=== PATIENT | male | born 1950 | race Caucasian/White ===

== ENCOUNTER 2017-01-29 09:26 | Observation (INO) | payer BC, MEDICARE ==
--- NOTE | ~2017-01-29 | HP ---
History And Physical [address] [place]. [address] NAME: ROBERT OLEA : 52 STATUS : ADM Namrata PAT#: [id number] AGE: 66 ADM/REG DATE : 01/29/17 MR#: [id number] REPORT SERV DATE: 01/29/17 DICTATED BY: DATE: REPORT STATUS : Draft TRANSCRIBED BY: MODL DATE: 01/29/17 DATE OF ADMISSION: 01/29/2017 CHIEF COMPLAINT: Diarrhea, nausea, and vomiting. HISTORY OF PRESENT ILLNESS: Mr. Olea 66-year-old white male, well known to our service with end-stage renal disease, being maintained on peritoneal dialysis. He presents to the hospital with diarrhea present since Friday. It initially started with nausea and vomiting. The nausea and vomiting had since resolved, however, then he began having diarrhea, multiple loose stools per day. The states every time he gets up and walks, liquid stools flows out. He is so weak, he cannot even get up and walk. Even his bottom is excoriated and he has had some blood. She is not sure if it is not just from the open wound on his bottom from all this diarrhea. He has been chilling. No overt fevers. His labs are stable for his end-stage renal disease. White blood cell count is normal. However, given this profuse diarrhea with hypotension and blood pressure in the 80s, he is being admitted for further evaluation. PAST MEDICAL HISTORY: End-stage renal disease; COPD; hypothyroidism; systolic heart failure; hypertension; atrial fibrillation; hyperlipidemia; type 2 diabetes; CVA; cluster headaches; C-spine stenosis with significant chronic pain, being maintained on chronic opioids; vertebral stenosis; failed renal transplant; and coronary artery disease, status post bypass and NH. SOCIAL HISTORY: He is . His is very supportive and helps with his care. Remote tobacco use. No alcohol use. FAMILY MEDICAL HISTORY: Strongly positive for end-stage renal disease. MEDICATIONS: At home; aspirin, Bumex, PhosLo, Coreg, Zyrtec, clobetasol, clonidine, Plavix, Lomotil, Colace, Lexapro, [place], NovoLog, Lantus, iron, Synthroid, Cytomel, Zestril, ProAmatine, Remeron, Singulair, Nitrostat, oxycodone, Protonix, Phenergan, Ranexa, Crestor, and Aranesp. REVIEW OF SYSTEMS: A 12-point review of systems was obtained and negative with the exception of that in the HPI. PHYSICAL EXAMINATION: VITAL SIGNS: Temp 97.8, blood pressure 89/36, pulse 71, respiratory rate 12, and O2 saturation is 94%. GENERAL: This is a chronically ill-appearing white male. He is awake, alert, oriented x3, in no acute distress. He answers questions appropriately. HEENT: Normocephalic and atraumatic. Conjunctivae are clear. Sclerae are anicteric. Pupils are equal and round. Oral mucosa is dry. NECK: Supple. Carotids are without bruits. Neck veins are flat. No lymphadenopathy. LUNGS: His respirations are even and unlabored. Breath sounds clear to auscultation. History And Physical [address] [address] NAME: ROBERT OLEA : 52 STATUS : ADM Namrata PAT#: [id number] AGE: 66 ADM/REG DATE : 01/29/17 MR#: [id number] REPORT SERV DATE: 01/29/17 DICTATED BY: DATE: REPORT STATUS : Draft TRANSCRIBED BY: MODL DATE: 01/29/17 HEART: Rate is regular. No murmur, rub, or gallop. ABDOMEN: Soft. Peritoneal catheter with no drainage or opening sores around the exit site. Abdomen is soft and nontender. Bowel sounds are active. No CVA tenderness. BACK: Within normal limits. EXTREMITIES: No edema, cyanosis, or clubbing. SKIN: Warm, dry, and intact. No unusual rashes or skin lesions. NEURO: Generalized weakness. No focal deficits. Mood and affect, pleasant and appropriate. PERTINENT LABS AND X-RAYS: Chest x-ray is found to be negative. WBC 7000, H and H 9 and 28, and platelets 168,000. Sodium 134, potassium 3.9, chloride 101, CO2 of 20, BUN of 81, creatinine of 7.5, calcium 6.9, and magnesium 1.9. Albumin 2.8. LFTs are unremarkable. IMPRESSION: 1. Diarrhea. 2. Nausea and vomiting. 3. Hypotension. 4. End-stage renal disease. 5. Type 2 diabetes. 6. Chronic pain. PLAN: Admit. We will start him empirically on vancomycin p.o. until the C. diff comes back. He will be provided with antiemetics, IV fluids, and PD with 1.5% solution tonight. Hold blood pressure medicines as appropriate. Pain medicines will be provided if blood pressure allows. Further orders and recommendations pending clinical course. MAKI/CAROLINA SIMONE Duffy / [id number] CC: Jimmy Altman M.D. Braxton Cole DO
[~2017-01-29 09:26] MED LIST: AFRIN15 NAS; ARANESP IM; ARANESP IV; ASA5GR PO; ASAB PO; ATIVAN2 MG PO; ATRONASAL3 NAS; ATV1 PO; BEN GAY1.25 OZ TOP; BUM1 PO; CAT1 PO; CHANTIX0.5 PO; CLARIT10 PO; CLOBETASOL0.051 EX; COMPOUND CREAM TOP; COREG12 PO; COREG25 PO; COREG6 PO; COUMADIN7.5 MG PO; CRESTOR40 MG PO; CYMBALTA60 PO; CYTO5 PO; D.O.S.100 MG PO; DEMA20 PO; DSS PO; DYMISTA NASAL S23 GM NAS; EZFE 200200 MG PO; FISH OIL1200 MG PO; FISH-EPA1000 MG PO; HALF81 PO; HYDROCODONE PO; HYZAAR1 TAB PO; IMDUR30 PO; IMDUR60 PO; LANTUS SC; LANTUSCART SC; LASIX; LEVEMIR SC; LEVOTHYROXIN100 MCG PO; LEVOTHYROXIN75 MCG PO; LEXAPRO10 PO; LEXAPRO20 PO; LIPITOR80 MG PO; LISINOPRIL40 MG PO; LORTAB10 PO; MSCONT15 PO; MSCONTIN PO; NICODERM C14 MG/24 H TOP; NICODERM C7 MG/24 HR TOP; NITROSTAT0.4 MG SL; NORCO1 TA2 PO; NORCO1 TAB PO; NORV5 PO; NOVOLOG SC; NOVOPEN SC; OXYCON10 PO; OXYCONTIN30 MG PO; PHOSLO PO; PLAVIX PO; PRAVACHOL80 MG PO; PRIN2.5 PO; PRIN5 PO; PROAMAT5 PO; PROTONIX PO; RAN500 PO; REM15 PO; REMERON30 MG PO; SEROQUEL25 PO; SINGULAIR1 PO; SUPER B-100 PO; SYN1 PO; TEKTURNA300 MG PO; TEMOVATE CREAM30 GM TOP; ULTRAM50 PO; VENOFER IV; VITAMIN D1000 UNI1 PO; VITAMIN D31000 UNIT PO; WELLBUTRIN; ZESTRIL10 MG PO; ZOFRAN8 SL; ZOFRANODT8 PO; ZYRTEC ALLGY10 MG PO; [UNRECOGNIZED DRUG - OTHER] PO
[2017-01-29 10:24] LABS: BASOPHILS 0.1 %; BASOPHILS ABSOLUTE 0.01 10/3/uL (0.0-0.16); EOSINOPHILS 0.5 %; EOSINOPHILS ABSOLUTE 0.04 10/3/uL (0.0-0.53); ER CBC TAT 0 Hrs 05 Mins; HEMATOCRIT 28.7 % (40.0-51.0); HEMOGLOBIN 9.3 g/dL (13.6-17.8); IMMATURE GRANULOCYTES 0.3 %; IMMATURE GRANULOCYTES ABSOLUTE 0.02 10/3/uL (0.0-0.11); LYMPHOCYTES 11.7 %; MANUAL DIFF NO %; MEAN CORPUS HGB CONC 32.4 g/dL (32.0-36.0); MEAN CORPUSCULAR HEMOGLOB 31.7 pg (26.0-34.0); MEAN PLATELET VOLUME 9.9 fL (9.2-13.0); MONOCYTES 12.3 %; MONOCYTES ABSOLUTE 0.94 10/3/uL (0.21-1.20); NEUTROPHILS 75.1 %; NEUTROPHILS ABSOLUTE 5.75 10/3/uL (2.02-8.40); PLATELET COUNT 168 10/3/uL (150-400); RBC DISTRIBUTION WIDTH 14.5 % (12.0-16.0); RED CELL COUNT 2.93 10/6/uL (4.7-6.1); WHITE BLOOD CELLS 7.7 10/3/uL (4.5-10.5)
[2017-01-29 10:38] LABS: A/G RATIO 0.8 (0.7-1.9); ALBUMIN 2.5 G/DL (3.5-5.0); ALKALINE PHOSPHATASE 53 U/L (45-117); BUN (BLOOD UREA NITROGEN) 81 MG/DL (6-23); CALCIUM, SERUM 6.9 MG/DL (8.5-10.4); CHLORIDE, SERUM 101 MMOL/L (96-112); CO2 (CARBON DIOXIDE) 20 MMOL/L (24-34); CREATININE 7.51 MG/DL (0.70-1.30); GFR AFRICAN AMERICAN 8 ML/MIN (>=60); GFR NON AFRICAN AMERICAN 7 ML/MIN (>=60); GLOBULIN 3.2 G/DL (2.5-4.1); GLUCOSE, SERUM 72 MG/DL (60-99); POTASSIUM, SERUM 3.9 MMOL/L (3.5-5.3); SGOT(AST) 35 U/L (5-40); SGPT(ALT) 21 U/L (5-65); SODIUM, SERUM 134 MMOL/L (135-148); TOTAL BILIRUBIN 0.3 MG/DL (0-1.2); TOTAL PROTEIN 5.7 G/DL (6.0-8.5)
[2017-01-29] MEDS ORDERED: PR25 PO (12:12)
[2017-01-29] MEDS ORDERED: LOM PO (12:13)
[2017-01-30 06:22] LABS: ALBUMIN 2.3 G/DL (3.5-5.0); BUN (BLOOD UREA NITROGEN) 72 MG/DL (6-23); CALCIUM, SERUM 7.3 MG/DL (8.5-10.4); CHLORIDE, SERUM 108 MMOL/L (96-112); CO2 (CARBON DIOXIDE) 19 MMOL/L (24-34); CREATININE 6.96 MG/DL (0.70-1.30); GFR AFRICAN AMERICAN 9 ML/MIN (>=60); GFR NON AFRICAN AMERICAN 8 ML/MIN (>=60); GLUCOSE, SERUM 109 MG/DL (60-99); PHOSPHORUS, SERUM 4.7 MG/DL (2.5-4.5); SODIUM, SERUM 140 MMOL/L (135-148)
[2017-01-30 07:34] LABS: BASOPHILS 0.2 %; BASOPHILS ABSOLUTE 0.01 10/3/uL (0.0-0.16); EOSINOPHILS 1.8 %; HEMATOCRIT 28.2 % (40.0-51.0); HEMOGLOBIN 9.2 g/dL (13.6-17.8); IMMATURE GRANULOCYTES 0.2 %; IMMATURE GRANULOCYTES ABSOLUTE 0.01 10/3/uL (0.0-0.11); LYMPHOCYTES 14.2 %; LYMPHOCYTES ABSOLUTE 0.81 10/3/uL (0.67-4.30); MEAN CORPUS HGB CONC 32.6 g/dL (32.0-36.0); MEAN CORPUSCULAR HEMOGLOB 31.6 pg (26.0-34.0); MEAN CORPUSCULAR VOLUME 96.9 fL (80-100); MEAN PLATELET VOLUME 10.2 fL (9.2-13.0); MONOCYTES 14.4 %; MONOCYTES ABSOLUTE 0.82 10/3/uL (0.21-1.20); NEUTROPHILS 69.2 %; NEUTROPHILS ABSOLUTE 3.95 10/3/uL (2.02-8.40); PLATELET COUNT 158 10/3/uL (150-400); RBC DISTRIBUTION WIDTH 14.5 % (12.0-16.0); RED CELL COUNT 2.91 10/6/uL (4.7-6.1); WHITE BLOOD CELLS 5.7 10/3/uL (4.5-10.5)
[2017-01-30 07:35] LABS: MANUAL DIFF NO %
[2017-01-31 06:11] LABS: BASOPHILS 0.2 %; BASOPHILS ABSOLUTE 0.01 10/3/uL (0.0-0.16); EOSINOPHILS 3.5 %; EOSINOPHILS ABSOLUTE 0.21 10/3/uL (0.0-0.53); HEMATOCRIT 25.4 % (40.0-51.0); HEMOGLOBIN 8.5 g/dL (13.6-17.8); IMMATURE GRANULOCYTES 0.3 %; IMMATURE GRANULOCYTES ABSOLUTE 0.02 10/3/uL (0.0-0.11); LYMPHOCYTES 18.4 %; LYMPHOCYTES ABSOLUTE 1.09 10/3/uL (0.67-4.30); MEAN CORPUS HGB CONC 33.5 g/dL (32.0-36.0); MEAN CORPUSCULAR HEMOGLOB 31.7 pg (26.0-34.0); MEAN CORPUSCULAR VOLUME 94.8 fL (80-100); MEAN PLATELET VOLUME 9.9 fL (9.2-13.0); MONOCYTES 13.2 %; MONOCYTES ABSOLUTE 0.78 10/3/uL (0.21-1.20); NEUTROPHILS 64.4 %; NEUTROPHILS ABSOLUTE 3.81 10/3/uL (2.02-8.40); PLATELET COUNT 152 10/3/uL (150-400); RBC DISTRIBUTION WIDTH 14.6 % (12.0-16.0); RED CELL COUNT 2.68 10/6/uL (4.7-6.1); WHITE BLOOD CELLS 5.9 10/3/uL (4.5-10.5)
[2017-01-31 06:12] LABS: MANUAL DIFF NO %
[2017-01-31 06:24] LABS: A/G RATIO 0.7 (0.7-1.9); ALBUMIN 2.1 G/DL (3.5-5.0); ALKALINE PHOSPHATASE 53 U/L (45-117); CALCIUM, SERUM 7.4 MG/DL (8.5-10.4); CHLORIDE, SERUM 111 MMOL/L (96-112); CO2 (CARBON DIOXIDE) 21 MMOL/L (24-34); GFR AFRICAN AMERICAN 11 ML/MIN (>=60); GFR NON AFRICAN AMERICAN 10 ML/MIN (>=60); GLOBULIN 3.2 G/DL (2.5-4.1); GLUCOSE, SERUM 114 MG/DL (60-99); POTASSIUM, SERUM 3.2 MMOL/L (3.5-5.3); SGOT(AST) 27 U/L (5-40); SGPT(ALT) 18 U/L (5-65); SODIUM, SERUM 144 MMOL/L (135-148); TOTAL BILIRUBIN 0.2 MG/DL (0-1.2); TOTAL PROTEIN 5.3 G/DL (6.0-8.5)
[2017-01-31 06:25] LABS: BUN (BLOOD UREA NITROGEN) 55 MG/DL (6-23); CREATININE 5.59 MG/DL (0.70-1.30)
[2017-01-31] MEDS ORDERED: VANCOCIN HCL125 MG PO (09:57)
[2017-06-14] MEDS ORDERED: ASAB PO (03:25)
[2017-06-14] MEDS ORDERED: ARANESP200 IV (03:25)
[2017-06-14] MEDS ORDERED: PHOSLO PO (03:27)
[2017-06-14] MEDS ORDERED: ROCALTROL0.5 MCG PO (03:29)
[2017-06-14] MEDS ORDERED: TEMOVATE CREAM30 GM TOP (03:29)
[2017-06-14] MEDS ORDERED: CAT1 PO (03:31)
[2017-06-14] MEDS ORDERED: COREG12 PO (03:32)
[2017-06-14] MEDS ORDERED: CRESTOR40 MG PO (03:32)
[2017-06-14] MEDS ORDERED: DOK100 MG PO (03:33)
[2017-06-14] MEDS ORDERED: L80 PO (03:33)
[2017-06-14] MEDS ORDERED: IMDUR60 PO (03:34)
[2017-06-14] MEDS ORDERED: NORCO1 TAB PO (03:34)
[2017-06-14] MEDS ORDERED: BASAGLAR K100 UNIT/1 (03:36)
[2017-06-14] MEDS ORDERED: ATRONASAL6 NAS (03:36)
[2017-06-14] MEDS ORDERED: LEXAPRO20 PO (03:37)
[2017-06-14] MEDS ORDERED: LEVOTHYROXIN100 MCG PO (03:37)
[2017-06-14] MEDS ORDERED: CYTO5 PO (03:38)
[2017-06-14] MEDS ORDERED: PRIN10 PO (03:39)
[2017-06-14] MEDS ORDERED: PROAM25 PO (03:40)
[2017-06-14] MEDS ORDERED: REM15 PO (03:40)
[2017-06-14] MEDS ORDERED: NOVOPEN SC (03:41)
[2017-06-14] MEDS ORDERED: PLAVIX PO (03:41)
[2017-06-14] MEDS ORDERED: NITROSTAT0.4 MG SL (03:41)
[2017-06-14] MEDS ORDERED: PROTONIX PO (03:42)
[2017-06-14] MEDS ORDERED: RENA-VITE PO (03:43)
[2017-06-14] MEDS ORDERED: RAN500 PO (03:43)
[2017-06-14] MEDS ORDERED: ZYRTEC ALLGY10 MG PO (03:44)
[2017-06-14] MEDS ORDERED: VENOFER IV (03:44)
[2017-06-14] MEDS ORDERED: RENVELA800 MG PO (03:44)
[2017-06-14] MEDS ORDERED: SINGULAIR1 PO (03:44)
[2017-06-20] MEDS ORDERED: SYN1 PO (02:18)
[2017-06-20] MEDS ORDERED: BUM1 PO (02:18)
[2017-06-20] MEDS ORDERED: PROTONIX PO (02:18)
[2017-06-20] MEDS ORDERED: RENA-VITE PO (02:19)
[2017-06-20] MEDS ORDERED: RENVELA800 MG PO (02:19)
[2017-06-20] MEDS ORDERED: IMDUR60 PO (02:20)
[2017-06-20] MEDS ORDERED: CRESTOR40 MG PO (02:20)
[2017-06-20] MEDS ORDERED: ZESTRIL10 MG PO (02:20)
[2017-06-20] MEDS ORDERED: NITROSTAT0.4 MG SL (02:21)
[2017-06-20] MEDS ORDERED: LEXAPRO20 PO (02:21)
[2017-06-20] MEDS ORDERED: PLAVIX PO (02:21)
[2017-06-20] MEDS ORDERED: RAN500 PO (02:21)
[2017-06-20] MEDS ORDERED: NORCO1 TAB PO (02:22)
[2017-06-20] MEDS ORDERED: DSS PO (02:23)
[2017-06-20] MEDS ORDERED: REM15SOL PO (02:25)
[2017-06-20] MEDS ORDERED: [UNRECOGNIZED DRUG - OTHER] PO (02:25)
[2017-06-20] MEDS ORDERED: BASAGLAR K100 UNIT/1 SC (02:26)
[2017-06-20] MEDS ORDERED: COREG12 PO (02:27)
[2017-06-20] MEDS ORDERED: COREG25 PO (02:27)
[2017-06-20] MEDS ORDERED: ATRONASAL3 NAS (02:28)
[2017-06-20] MEDS ORDERED: CYTO5 PO (02:29)
[2017-06-20] MEDS ORDERED: PHOSLO PO (02:29)
[2017-06-20] MEDS ORDERED: SINGULAIR1 PO (02:30)
[2017-06-20] MEDS ORDERED: ROCALTROL0.5 MCG PO (02:31)
[2017-06-20] MEDS ORDERED: ASAB PO (02:31)
[2017-06-20] MEDS ORDERED: ZYRTEC ALLGY10 MG PO (02:32)
[2017-06-20] MEDS ORDERED: VENOFER IV (02:34)
[2017-06-20] MEDS ORDERED: CAT1 PO (02:35)
== END 2017-01-31 13:14 | disposition home or self-care (01) ==
LOC: ER 09:26 → 4SO 15:16
PROVIDERS: Emergency Medicine; Internal Medicine Nephrology; Nurse Practitioner
DX: R19.7 Diarrhea, unspecified (principal); R11.10 Vomiting, unspecified; E11.22 Type 2 diabetes mellitus with diabetic chronic kidney disease; N18.6 End stage renal disease; Z88.1 Allergy status to other antibiotic agents; Z79.82 Long term (current) use of aspirin; Z79.02 Long term (current) use of antithrombotics/antiplatelets; Z79.4 Long term (current) use of insulin; Z79.899 Other long term (current) drug therapy
CPT/HCPCS: 71010; 80053; 80069; 81001; 82330; 82962; 83735; 85025; 87045; 87046; 87046-59; 87328; 87329; 87493; 87493-59; 87899; 87899-59; 89055; 96361; 96374; 99285; A9270-GY; G0378; J0610; J1170; J2405